=== PATIENT | male | born 1940 | race African-American/Black ===

== ENCOUNTER 2021-03-08 18:57 | Emergency (ER) | payer OTHER, MEDICAID ==
[2021-03-08 19:00] VITALS: BP_SYST 120
--- NOTE | 2021-03-08 19:06 | NUR ---
PT RETURNED FROM CT SCAN VIA [facility] BY RADIOLOGY STAFF.
--- NOTE | 2021-03-08 19:20 | NUR ---
Aisha's blood sugar is 101
[2021-03-08] MEDS: NALOXONE HCL 2 MG/2 ML SYR IVP ONE (19:54)
[2021-03-08 19:59] LABS: BASOPHILS % (AUTO) 0.6 % (0.0-2.0); EOSINOPHILS # (AUTO) 0.3 K/uL (0.0-0.4); EOSINOPHILS % (AUTO) 4.1 % (0.0-4.0); HEMATOCRIT 30.1 % (36-54); HEMOGLOBIN 9.4 g/dL (14.0-18.0); LYMPHOCYTES % (AUTO) 13.3 % (20.5-51.5); MEAN CORPUSCULAR HEMOGLOBIN 24 pg (27-31); MEAN CORPUSCULAR HGB CONC 31 % (32-36); MEAN CORPUSCULAR VOLUME 77 fL (79.0-98.0); MONOCYTES # (AUTO) 0.9 K/uL (0.0-1.0); MONOCYTES % (AUTO) 11.7 % (1.7-9.3); NEUTROPHILS # (AUTO) 5.3 K/uL (1.8-7.7); NEUTROPHILS % (AUTO) 70.3 % (40.0-70.0); PLATELET COUNT (AUTO) 316 K/uL (130-430); RED BLOOD CELL COUNT(AUTO) 3.94 MIL/uL (4.2-6.2); RED CELL DISTRIBUTION WIDTH 16.6 % (9.0-15.0); WHITE BLOOD COUNT (AUTO) 7.6 K/uL (4.8-10.8)
--- NOTE | 2021-03-08 20:00 | NUR ---
TeleMed tom performed assessment on patient via televideo
[2021-03-08 20:15] LABS: ANION GAP 9 (5-15); CALCIUM 10.4 mg/dL (8.4-11.0); CHLORIDE 100 mmol/L (98-107); GLUCOSE 106 mg/dL (70-99); POTASSIUM 3.8 mmol/L (3.5-5.1); SODIUM SERUM 139 mmol/L (136-145); UREA NITROGEN, BLOOD 31 mg/dL (8-21)
[2021-03-08 20:16] LABS: PROTHROMBIN TIME 10.5 SECS (9.5-12.5)
[2021-03-08 20:18] LABS: CREATININE 10.72 mg/dL (0.55-1.30)
[2021-03-08 20:32] LABS: TOTAL BILIRUBIN 0.2 mg/dL (0.0-1.0)
[2021-03-08 20:33] LABS: ALANINE AMINOTRANSFERASE 19 U/L (12-78); ALBUMIN 2.8 g/dL (3.4-4.8); ASPARTATE AMINOTRANSFERASE 21 U/L (10-37)
[2021-03-08] MEDS ORDERED: IOHEXOL 350 mgI/mL, 150 ML INFUS..BTL IV ONE (21:08)
--- NOTE | 2021-03-08 21:40 | NUR ---
patient went to do a CVA CT of head and neck.
[2021-03-08] MEDS ORDERED: ONDANSETRON HCL 4 MG/2 ML VIAL ONE (21:41)
--- NOTE | 2021-03-08 21:45 | NUR ---
Report given to Chel in [facility].
--- NOTE | 2021-03-08 21:50 | NUR ---
AMS arrived to transfer patient. Report given to Aleah.
--- NOTE | 2021-03-08 22:02 | NUR ---
Patient to be transferred to [place]. Is being transferred due to higher level of care. Receiving facility has accepting physician and available space. ER physician has signed transfer form. Patient or responsible libertarian has agreed to transfer and signed form. Patient belongings inventoried and will be sent with patient. Copy of nursing notes, lab reports, EKG, Physicians Orders and X-rays to be sent with patient. Report called to [facility] at receiving facility. Receiving physician is Dr. Elizabeth. [facility] ambulance service has been called for transfer,
--- NOTE | 2021-03-08 22:04 | NUR ---
AMS received 2/3 discs because of delay of care. Will fax over
[2021-03-08] MEDS: ASPIRIN 325 MG TABLET PO ONE (22:08)
[2021-03-08] MEDS: CLOPIDOGREL BISULFATE 75 MG TABLET PO ONE (22:08)
[2021-03-08 22:20] VITALS: BP_SYST 120
== END 2021-03-08 22:20 | disposition short-term general hospital (02) ==
LOC: SED 18:57
DX: I63.9 Cerebral infarction, unspecified (principal); G81.94 Hemiplegia, unspecified affecting left nondominant side; R41.82 Altered mental status, unspecified; D53.9 Nutritional anemia, unspecified; I11.0 Hypertensive heart disease with heart failure; I50.9 Heart failure, unspecified; E11.9 Type 2 diabetes mellitus without complications
CPT/HCPCS: 36415; 70450; 70496; 70498; 71045; 76376; 80053; 82962; 84484; 85025; 85610; 85730; 86886; 86900; 86901; 93005; 96374; 99291; J2310; J2405; Q9967

== ENCOUNTER 2022-07-21 22:27 | Inpatient (IN) | payer OTHER, MEDICAID ==
[~2022-07-21] VITALS: Ht 175.3 cm; Wt 98.9 kg
[2022-07-21 22:41] VITALS: BP_SYST 156
[2022-07-21] MEDS ORDERED: NS 1000 ML IV.SOLN IV ONE (22:45)
[2022-07-21] MEDS ORDERED: cefTRIAXone 1 GM IVPB PREMIX 50 ML IV ONE (22:45)
[2022-07-21 23:31] LABS: HEMATOCRIT 29.1 % (36-54); HEMOGLOBIN 9.1 g/dL (14.0-18.0); MEAN CORPUSCULAR HEMOGLOBIN 24 pg (27-31); MEAN CORPUSCULAR HGB CONC 31 % (32-36); MEAN CORPUSCULAR VOLUME 76 fL (79.0-98.0); PLATELET COUNT (AUTO) 100 K/uL (130-430); RED BLOOD CELL COUNT(AUTO) 3.84 MIL/uL (4.2-6.2); RED CELL DISTRIBUTION WIDTH 16.9 % (9.0-15.0); WHITE BLOOD COUNT (AUTO) 17.9 K/uL (4.8-10.8)
[2022-07-21 23:45] LABS: BAND % (MANUAL) 16 % (0-6); BASOPHILS % (MANUAL) 0 % (0-2); EOSINOPHILS % (MANUAL) 0 % (0-7); LYMPHOCYTES % (MANUAL) 3 % (20-46); MONOCYTES % (MANUAL) 6 % (0-11)
[2022-07-21 23:48] LABS: ANION GAP 7 (5-15); CALCIUM 9.4 mg/dL (8.4-11.0); CHLORIDE 102 mmol/L (98-107); CREATININE 4.99 mg/dL (0.55-1.30); GLUCOSE 103 mg/dL (70-99); UREA NITROGEN, BLOOD 21 mg/dL (8-21)
[2022-07-21 23:55] LABS: ALANINE AMINOTRANSFERASE 26 U/L (12-78); ALBUMIN 2.1 g/dL (3.4-4.8); ASPARTATE AMINOTRANSFERASE 43 U/L (10-37); TOTAL BILIRUBIN 0.3 mg/dL (0.0-1.0)
[2022-07-22] VITALS (11 sets, daily range): BP systolic 82–157
[2022-07-22] MEDS ORDERED: IPRATROPIUM/ALBUTEROL SULFATE 3 ML AMPUL.NEB (DUONEB) ONE (02:33)
[2022-07-22] MEDS ORDERED: CARV25TA55 PO (03:15)
[2022-07-22] MEDS ORDERED: AMLO5TAB4 PO (03:15)
[2022-07-22] MEDS ORDERED: IPRA3AMP9 INH (03:15)
[2022-07-22] MEDS ORDERED: NEU300 PO (03:15)
[2022-07-22] MEDS ORDERED: DARB60VI INJ ×2 (03:15)
[2022-07-22] MEDS ORDERED: REN800 PO (03:15)
[2022-07-22] MEDS ORDERED: SSNOVOLOG SUBCUT (03:15)
[2022-07-22] MEDS ORDERED: ASA81 PO (03:15)
[2022-07-22] MEDS ORDERED: FAMO20TA8 PO (03:15)
[2022-07-22] MEDS ORDERED: PIPERACILLIN/TAZOBACTAM 2.25 GM VIAL IV ONE (03:56)
[2022-07-22] MEDS ORDERED: PIPERACILLIN/TAZOBACTAM 2.25 GM in NS 50 ML IV SCH (06:00)
[2022-07-22] MEDS: IPRATROPIUM/ALBUTEROL SULFATE 3 ML AMPUL.NEB (DUONEB) INH SCH ×4 (07:10→19:50)
[2022-07-22] MEDS ORDERED: SEVELAMER HCL Non-Formulary 800 MG TABLET PO SCH (09:30)
[2022-07-22] MEDS ORDERED: DARBEPOETIN ALFA IN POLYSORBAT 60 MCG INJ SCH (09:30)
[2022-07-22] MEDS ORDERED: IPRATROPIUM/ALBUTEROL SULFATE 3 ML AMPUL.NEB (DUONEB) INH PRN (09:30)
[2022-07-22] MEDS ORDERED: INSULIN REGULAR, HUMAN 100 UNITS/ML, 3 ML VIAL (humuLIN R) SUBCUT PRN (09:45)
[2022-07-22] MEDS ORDERED: DEXTROSE 50% JECT 50 ML DISP.SYRIN IVP PRN (09:45)
[2022-07-22] MEDS ORDERED: CARVEDILOL 25 MG TABLET (COREG) PO ONE (10:15)
[2022-07-22] MEDS ORDERED: ASPIRIN 81 MG TAB.CHEW PO ONE (10:15)
[2022-07-22] MEDS ORDERED: FAMOTIDINE 20 MG TABLET PO ONE (10:30)
[2022-07-22] MEDS ORDERED: amLODIPine BESYLATE 5 MG TABLET PO ONE (10:30)
[2022-07-22] MEDS ORDERED: GABAPENTIN 300 MG CAPSULE PO ONE (10:30)
[2022-07-22] MEDS: ACETAMINOPHEN 325 MG TABLET PO PRN (11:36)
[2022-07-22] MEDS: SEVELAMER CARBONATE 800 MG TABLET PO SCH ×2 (11:55→17:45)
[2022-07-22] MEDS: AZITHROMYCIN 500 MG in NS 250 ML IV SCH (12:44)
[2022-07-22] MEDS: PIPERACILLIN/TAZOBACTAM 2.25 GM in NS 50 ML IV SCH ×3 (15:00→23:59)
[2022-07-22 15:01] LABS: HEMATOCRIT 23.8 % (36-54); HEMOGLOBIN 7.5 g/dL (14.0-18.0); MEAN CORPUSCULAR HEMOGLOBIN 24 pg (27-31); MEAN CORPUSCULAR HGB CONC 31 % (32-36); MEAN CORPUSCULAR VOLUME 76 fL (79.0-98.0); PLATELET COUNT (AUTO) 88 K/uL (130-430); RED BLOOD CELL COUNT(AUTO) 3.12 MIL/uL (4.2-6.2); RED CELL DISTRIBUTION WIDTH 17.1 % (9.0-15.0); WHITE BLOOD COUNT (AUTO) 24.1 K/uL (4.8-10.8)
[2022-07-22 15:22] LABS: ALANINE AMINOTRANSFERASE 15 U/L (12-78); ALBUMIN 1.8 g/dL (3.4-4.8); ANION GAP 7 (5-15); ASPARTATE AMINOTRANSFERASE 27 U/L (10-37); CALCIUM 9.1 mg/dL (8.4-11.0); CHLORIDE 102 mmol/L (98-107); CREATININE 6.21 mg/dL (0.55-1.30); GLUCOSE 90 mg/dL (70-99); TOTAL BILIRUBIN 0.3 mg/dL (0.0-1.0); UREA NITROGEN, BLOOD 30 mg/dL (8-21)
[2022-07-22 15:31] LABS: BAND % (MANUAL) 25 % (0-6); BASOPHILS % (MANUAL) 0 % (0-2); EOSINOPHILS % (MANUAL) 0 % (0-7); LYMPHOCYTES % (MANUAL) 2 % (20-46); METAMYELOCYTES % 2 % (0-0); MONOCYTES % (MANUAL) 4 % (0-11)
[2022-07-22 16:18] LABS: INR 1.2 (0.80-1.20); PROTHROMBIN TIME 12.3 SECS (9.5-12.5)
[2022-07-22] MEDS ORDERED: NOREPINEPHRINE BITARTRATE 4 MG in NS 246 ML IV PRN (18:00)
[2022-07-22] MEDS ORDERED: METHYLPREDNISOLONE SOD SUCC 40 MG/ML VIAL IVP ONE (18:30)
[2022-07-22] MEDS ORDERED: ALBUMIN HUMAN 25% 100 ML IV ONE (18:30)
[2022-07-22] MEDS ORDERED: SODIUM POLYSTYRENE SULFONATE 15 GM/60 ML UDBTL PO ONE (20:00)
[2022-07-22] MEDS ORDERED: VANCOMYCIN HCL 1,000 MG in NS 250 ML IV ONE (21:00)
[2022-07-22] MEDS ORDERED: CARVEDILOL 25 MG TABLET (COREG) PO SCH (21:00)
[2022-07-22] MEDS: GABAPENTIN 300 MG CAPSULE PO SCH (21:06)
[2022-07-22] MEDS: METHYLPREDNISOLONE SOD SUCC 40 MG/ML VIAL IVP SCH (21:06)
[2022-07-22] MEDS ORDERED: METHYLPREDNISOLONE SOD SUCC 40 MG/ML VIAL IVP SCH (22:00)
[2022-07-23] VITALS (23 sets, daily range): BP systolic 104–139
[2022-07-23 05:27] LABS: EOSINOPHILS % (AUTO) 0.1 % (0.0-4.0); HEMOGLOBIN 7.4 g/dL (14.0-18.0); LYMPHOCYTES # (AUTO) 0.5 K/uL (1.0-5.5); LYMPHOCYTES % (AUTO) 2.7 % (20.5-51.5); MEAN CORPUSCULAR HEMOGLOBIN 23 pg (27-31); MEAN CORPUSCULAR HGB CONC 31 % (32-36); MEAN CORPUSCULAR VOLUME 76 fL (79.0-98.0); MONOCYTES # (AUTO) 0.2 K/uL (0.0-1.0); MONOCYTES % (AUTO) 1.4 % (1.7-9.3); NEUTROPHILS # (AUTO) 17.3 K/uL (1.8-7.7); NEUTROPHILS % (AUTO) 95.8 % (40.0-70.0); PLATELET COUNT (AUTO) 93 K/uL (130-430); RED BLOOD CELL COUNT(AUTO) 3.14 MIL/uL (4.2-6.2); RED CELL DISTRIBUTION WIDTH 16.9 % (9.0-15.0)
[2022-07-23 05:55] LABS: ALANINE AMINOTRANSFERASE 16 U/L (12-78); ALBUMIN 2.1 g/dL (3.4-4.8); ANION GAP 9 (5-15); ASPARTATE AMINOTRANSFERASE 25 U/L (10-37); CALCIUM 9.2 mg/dL (8.4-11.0); CHLORIDE 102 mmol/L (98-107); CREATININE 6.86 mg/dL (0.55-1.30); GLUCOSE 102 mg/dL (70-99); PHOSPHORUS 5.8 mg/dL (2.7-4.5); TOTAL BILIRUBIN 0.4 mg/dL (0.0-1.0); UREA NITROGEN, BLOOD 39 mg/dL (8-21); VANCOMYCIN,RANDOM 18.8 ug/mL
[2022-07-23 05:56] LABS: TOTAL IRON BIND. CAPACITY 206 ug/dL (250-450)
[2022-07-23] MEDS: METHYLPREDNISOLONE SOD SUCC 40 MG/ML VIAL IVP SCH ×2 (06:36→17:59)
[2022-07-23] MEDS: PIPERACILLIN/TAZOBACTAM 2.25 GM in NS 50 ML IV SCH ×4 (06:36→23:38)
[2022-07-23] MEDS: IPRATROPIUM/ALBUTEROL SULFATE 3 ML AMPUL.NEB (DUONEB) INH SCH ×4 (07:44→19:38)
[2022-07-23] MEDS ORDERED: amLODIPine BESYLATE 5 MG TABLET PO SCH (09:00)
[2022-07-23] MEDS: CARVEDILOL 6.25 MG TABLET (COREG) PO SCH ×2 (09:00→21:00)
[2022-07-23] MEDS: SEVELAMER CARBONATE 800 MG TABLET PO SCH ×3 (10:11→17:57)
[2022-07-23] MEDS: FAMOTIDINE 20 MG TABLET PO SCH (10:11)
[2022-07-23] MEDS: NEPHROVITE, (FOLIC ACID/VITAMIN B COMP W-C 1 TAB) PO SCH (10:11)
[2022-07-23] MEDS: ASPIRIN 81 MG TAB.CHEW PO SCH (10:11)
[2022-07-23] MEDS: GABAPENTIN 300 MG CAPSULE PO SCH ×2 (10:11→21:26)
[2022-07-23] MEDS: AZITHROMYCIN 500 MG in NS 250 ML IV SCH (10:11)
[2022-07-23] MEDS ORDERED: VANCOMYCIN HCL 500 MG in NS 100 ML IV ONE (18:00)
[2022-07-24] VITALS (21 sets, daily range): BP systolic 101–133
[2022-07-24 05:09] LABS: BASOPHILS % (AUTO) 0.1 % (0.0-2.0); HEMATOCRIT 30.9 % (36-54); HEMOGLOBIN 9.8 g/dL (14.0-18.0); LYMPHOCYTES # (AUTO) 0.6 K/uL (1.0-5.5); LYMPHOCYTES % (AUTO) 3.8 % (20.5-51.5); MEAN CORPUSCULAR HEMOGLOBIN 25 pg (27-31); MEAN CORPUSCULAR HGB CONC 32 % (32-36); MEAN CORPUSCULAR VOLUME 79 fL (79.0-98.0); MONOCYTES # (AUTO) 0.8 K/uL (0.0-1.0); NEUTROPHILS # (AUTO) 13.9 K/uL (1.8-7.7); NEUTROPHILS % (AUTO) 91.1 % (40.0-70.0); PLATELET COUNT (AUTO) 99 K/uL (130-430); RED BLOOD CELL COUNT(AUTO) 3.94 MIL/uL (4.2-6.2); RED CELL DISTRIBUTION WIDTH 17.8 % (9.0-15.0); WHITE BLOOD COUNT (AUTO) 15.3 K/uL (4.8-10.8)
[2022-07-24 05:25] LABS: ANION GAP 7 (5-15); CALCIUM 8.9 mg/dL (8.4-11.0); CHLORIDE 98 mmol/L (98-107); CREATININE 4.64 mg/dL (0.55-1.30); GLUCOSE 122 mg/dL (70-99); UREA NITROGEN, BLOOD 36 mg/dL (8-21); VANCOMYCIN,RANDOM 20.2 ug/mL
[2022-07-24] MEDS: METHYLPREDNISOLONE SOD SUCC 40 MG/ML VIAL IVP SCH ×2 (06:01→18:34)
[2022-07-24] MEDS: PIPERACILLIN/TAZOBACTAM 2.25 GM in NS 50 ML IV SCH ×3 (06:01→18:34)
[2022-07-24] MEDS: IPRATROPIUM/ALBUTEROL SULFATE 3 ML AMPUL.NEB (DUONEB) INH SCH ×4 (07:00→19:30)
[2022-07-24] MEDS: AZITHROMYCIN 500 MG in NS 250 ML IV SCH (10:42)
[2022-07-24] MEDS: GABAPENTIN 300 MG CAPSULE PO SCH ×2 (10:46→20:53)
[2022-07-24] MEDS: ASPIRIN 81 MG TAB.CHEW PO SCH (10:47)
[2022-07-24] MEDS: SEVELAMER CARBONATE 800 MG TABLET PO SCH ×3 (10:47→18:33)
[2022-07-24] MEDS: NEPHROVITE, (FOLIC ACID/VITAMIN B COMP W-C 1 TAB) PO SCH (10:47)
[2022-07-24] MEDS: FAMOTIDINE 20 MG TABLET PO SCH (10:47)
[2022-07-24] MEDS ORDERED: MEGESTROL ACETATE 400 MG/10 ML UDC PO ONE (12:15)
[2022-07-24] MEDS: MIRTAZAPINE 15 MG TABLET PO SCH (18:34)
[2022-07-25] VITALS: BP_SYST 117
[2022-07-25] MEDS: PIPERACILLIN/TAZOBACTAM 2.25 GM in NS 50 ML IV SCH ×4 (00:03→18:09)
[2022-07-25] MEDS: METHYLPREDNISOLONE SOD SUCC 40 MG/ML VIAL IVP SCH ×2 (05:26→17:39)
[2022-07-25 07:29] LABS: BASOPHILS % (AUTO) 0.1 % (0.0-2.0); EOSINOPHILS % (AUTO) 0.1 % (0.0-4.0); HEMATOCRIT 30.1 % (36-54); HEMOGLOBIN 9.6 g/dL (14.0-18.0); LYMPHOCYTES # (AUTO) 0.8 K/uL (1.0-5.5); LYMPHOCYTES % (AUTO) 6.3 % (20.5-51.5); MEAN CORPUSCULAR HEMOGLOBIN 25 pg (27-31); MEAN CORPUSCULAR HGB CONC 32 % (32-36); MEAN CORPUSCULAR VOLUME 79 fL (79.0-98.0); MONOCYTES # (AUTO) 0.9 K/uL (0.0-1.0); MONOCYTES % (AUTO) 6.7 % (1.7-9.3); NEUTROPHILS # (AUTO) 11.7 K/uL (1.8-7.7); NEUTROPHILS % (AUTO) 86.8 % (40.0-70.0); PLATELET COUNT (AUTO) 105 K/uL (130-430); RED BLOOD CELL COUNT(AUTO) 3.82 MIL/uL (4.2-6.2); WHITE BLOOD COUNT (AUTO) 13.5 K/uL (4.8-10.8)
[2022-07-25 07:32] LABS: ANION GAP 13 (5-15); CALCIUM 8.5 mg/dL (8.4-11.0); CHLORIDE 98 mmol/L (98-107); GLUCOSE 134 mg/dL (70-99); UREA NITROGEN, BLOOD 66 mg/dL (8-21)
[2022-07-25] MEDS: IPRATROPIUM/ALBUTEROL SULFATE 3 ML AMPUL.NEB (DUONEB) INH SCH ×4 (07:41→20:02)
[2022-07-25 07:57] LABS: ALANINE AMINOTRANSFERASE 34 U/L (12-78); ALBUMIN 1.9 g/dL (3.4-4.8); ASPARTATE AMINOTRANSFERASE 32 U/L (10-37); TOTAL BILIRUBIN 0.4 mg/dL (0.0-1.0); VANCOMYCIN,RANDOM 17.9 ug/mL
[2022-07-25] MEDS ORDERED: ATROPINE SULFATE 1 MG/10 ML SYRINGE IVP ONE ×2 (08:00→08:30)
[2022-07-25] MEDS: THEOPHYLLINE ANHYDROUS 200 MG CAP.ER.24H PO SCH ×2 (08:14→20:35)
[2022-07-25] MEDS: FAMOTIDINE 20 MG TABLET PO SCH (08:19)
[2022-07-25] MEDS: SEVELAMER CARBONATE 800 MG TABLET PO SCH ×3 (08:19→17:36)
[2022-07-25] MEDS: ASPIRIN 81 MG TAB.CHEW PO SCH (08:19)
[2022-07-25] MEDS: NEPHROVITE, (FOLIC ACID/VITAMIN B COMP W-C 1 TAB) PO SCH (08:19)
[2022-07-25 08:20] VITALS: BP_SYST 133
[2022-07-25] MEDS: MEGESTROL ACETATE 400 MG/10 ML UDC PO SCH (08:20)
[2022-07-25 08:54] VITALS: BP_SYST 117
[2022-07-25 12:00] VITALS: BP_SYST 120
[2022-07-25 16:03] VITALS: BP_SYST 113
[2022-07-25] MEDS: AZITHROMYCIN 500 MG in NS 250 ML IV SCH (16:19)
[2022-07-25] MEDS: MIRTAZAPINE 15 MG TABLET PO SCH (17:36)
[2022-07-25 20:00] VITALS: BP_SYST 142
[2022-07-25] MEDS ORDERED: ACETAMINOPHEN 325 MG TABLET PO PRN (20:45)
[2022-07-26] VITALS: BP_SYST 118
[2022-07-26] MEDS: PIPERACILLIN/TAZOBACTAM 2.25 GM in NS 50 ML IV SCH ×2 (00:37→05:24)
[2022-07-26] MEDS: METHYLPREDNISOLONE SOD SUCC 40 MG/ML VIAL IVP SCH ×2 (05:24→17:45)
[2022-07-26 06:09] LABS: BASOPHILS % (AUTO) 0.1 % (0.0-2.0); HEMOGLOBIN 9.8 g/dL (14.0-18.0); LYMPHOCYTES # (AUTO) 0.8 K/uL (1.0-5.5); MEAN CORPUSCULAR HEMOGLOBIN 25 pg (27-31); MEAN CORPUSCULAR HGB CONC 32 % (32-36); MEAN CORPUSCULAR VOLUME 79 fL (79.0-98.0); MONOCYTES # (AUTO) 0.9 K/uL (0.0-1.0); MONOCYTES % (AUTO) 6.9 % (1.7-9.3); NEUTROPHILS # (AUTO) 11.5 K/uL (1.8-7.7); PLATELET COUNT (AUTO) 106 K/uL (130-430); RED BLOOD CELL COUNT(AUTO) 3.95 MIL/uL (4.2-6.2); RED CELL DISTRIBUTION WIDTH 18.2 % (9.0-15.0); WHITE BLOOD COUNT (AUTO) 13.2 K/uL (4.8-10.8)
[2022-07-26] MEDS: IPRATROPIUM/ALBUTEROL SULFATE 3 ML AMPUL.NEB (DUONEB) INH SCH ×4 (07:06→20:13)
[2022-07-26 07:45] LABS: ALANINE AMINOTRANSFERASE 67 U/L (12-78); ALBUMIN 1.9 g/dL (3.4-4.8); ANION GAP 17 (5-15); ASPARTATE AMINOTRANSFERASE 52 U/L (10-37); CALCIUM 8.5 mg/dL (8.4-11.0); CHLORIDE 99 mmol/L (98-107); CREATININE 7.42 mg/dL (0.55-1.30); GLUCOSE 141 mg/dL (70-99); TOTAL BILIRUBIN 0.3 mg/dL (0.0-1.0); UREA NITROGEN, BLOOD 96 mg/dL (8-21); VANCOMYCIN,RANDOM 16.6 ug/mL
[2022-07-26] MEDS: SEVELAMER CARBONATE 800 MG TABLET PO SCH ×3 (08:00→17:46)
[2022-07-26] MEDS: MEGESTROL ACETATE 400 MG/10 ML UDC PO SCH (09:00)
[2022-07-26 11:19] VITALS: BP_SYST 155
[2022-07-26] MEDS: ASPIRIN 81 MG TAB.CHEW PO SCH (13:18)
[2022-07-26] MEDS: FAMOTIDINE 20 MG TABLET PO SCH (13:19)
[2022-07-26] MEDS: NEPHROVITE, (FOLIC ACID/VITAMIN B COMP W-C 1 TAB) PO SCH (13:20)
[2022-07-26] MEDS: THEOPHYLLINE ANHYDROUS 200 MG CAP.ER.24H PO SCH ×3 (13:21→22:02)
[2022-07-26] MEDS: ACETAMINOPHEN 325 MG TABLET PO PRN (16:04)
[2022-07-26] MEDS ORDERED: EPOETIN ALFA-EPBX 3,000 UNITS/ML VIAL SUBCUT SCH (17:00)
[2022-07-26 17:15] VITALS: BP_SYST 150
[2022-07-26] MEDS: MIRTAZAPINE 15 MG TABLET PO SCH (17:45)
[2022-07-26 18:58] VITALS: BP_SYST 139
[2022-07-26 20:00] VITALS: BP_SYST 145
[2022-07-27 01:00] VITALS: BP_SYST 149
[2022-07-27] MEDS: METHYLPREDNISOLONE SOD SUCC 40 MG/ML VIAL IVP SCH (06:39)
[2022-07-27] MEDS: IPRATROPIUM/ALBUTEROL SULFATE 3 ML AMPUL.NEB (DUONEB) INH SCH (07:00)
[2022-07-27 07:44] VITALS: BP_SYST 151
[2022-07-27] MEDS: NEPHROVITE, (FOLIC ACID/VITAMIN B COMP W-C 1 TAB) PO SCH (08:14)
[2022-07-27] MEDS: THEOPHYLLINE ANHYDROUS 200 MG CAP.ER.24H PO SCH (08:14)
[2022-07-27] MEDS: ASPIRIN 81 MG TAB.CHEW PO SCH (08:14)
[2022-07-27] MEDS: FAMOTIDINE 20 MG TABLET PO SCH (08:14)
[2022-07-27] MEDS: SEVELAMER CARBONATE 800 MG TABLET PO SCH (08:15)
[2022-07-27] MEDS: MEGESTROL ACETATE 400 MG/10 ML UDC PO SCH ×2 (08:15→08:21)
== END 2022-07-27 11:30 | DRG 871 ==
LOC: SED 22:27 → STU 07-22 01:54 → SIC 07-22 15:20 → STU 07-24 19:23
PROVIDERS: ADMIT Internal Medicine; ATTEND Internal Medicine
PROC: 30233N1 Transfusion of Nonautologous Red Blood Cells into Peripheral Vein, Percutaneous Approach (ICD-10-PCS; principal; 2022-07-23)
PROC: 5A1D70Z Performance of Urinary Filtration, Intermittent, Less than 6 Hours Per Day (ICD-10-PCS; 2022-07-23)
PROC: 5A1D70Z Performance of Urinary Filtration, Intermittent, Less than 6 Hours Per Day (ICD-10-PCS; 2022-07-24)
PROC: 5A1D70Z Performance of Urinary Filtration, Intermittent, Less than 6 Hours Per Day (ICD-10-PCS; 2022-07-26)
DX: A41.02 Sepsis due to Methicillin resistant Staphylococcus aureus (principal); E43 Unspecified severe protein-calorie malnutrition; G93.41 Metabolic encephalopathy; J18.9 Pneumonia, unspecified organism; N18.6 End stage renal disease; J96.00 Acute respiratory failure, unspecified whether with hypoxia or hypercapnia; R57.1 Hypovolemic shock; I69.354 Hemiplegia and hemiparesis following cerebral infarction affecting left non-dominant side; I12.0 Hypertensive chronic kidney disease with stage 5 chronic kidney disease or end stage renal disease; F03.90 Unspecified dementia, unspecified severity, without behavioral disturbance, psychotic disturbance, mood disturbance, and anxiety; I25.10 Atherosclerotic heart disease of native coronary artery without angina pectoris; D63.1 Anemia in chronic kidney disease; J84.10 Pulmonary fibrosis, unspecified; I44.1 Atrioventricular block, second degree; E11.42 Type 2 diabetes mellitus with diabetic polyneuropathy; J43.9 Emphysema, unspecified; Z20.822 Contact with and (suspected) exposure to COVID-19; E11.22 Type 2 diabetes mellitus with diabetic chronic kidney disease; Z79.82 Long term (current) use of aspirin; Z79.4 Long term (current) use of insulin; Z79.899 Other long term (current) drug therapy; Z74.01 Bed confinement status; Z99.3 Dependence on wheelchair; Z99.2 Dependence on renal dialysis; Z95.5 Presence of coronary angioplasty implant and graft; Z68.32 Body mass index [BMI] 32.0-32.9, adult
CPT/HCPCS: 36415; 36600; 70450-TC; 71045; 71250-TC; 76376; 80048; 80053; 80202; 82140; 82607; 82803-TC; 82962; 83540; 83550; 83605; 83880; 84100; 84484; 85007; 85025; 85027; 85610-TC; 85651-TC; 85730-TC; 86886; 86900; 86901; 86920; 87040; 87081; 87186-TC; 90935; 90937; 93005; 93306; 94640; 94760; 96361; 96365; 99285; G0378; J0456; J0461; J0696; J1030; J1815; J2543; J3370; J7050; P9021; Q5106

== ENCOUNTER 2022-07-30 23:17 | Inpatient (IN) | payer OTHER, MEDICAID ==
[~2022-07-30] VITALS: Ht 175.3 cm; Wt 73.0 kg
[~2022-07-30 23:17] MED LIST: AMLO5TAB4 PO; ASA81 PO; CARV25TA55 PO; DARB60VI INJ; FAMO20TA8 PO; IPRA3AMP9 INH; NEU300 PO; REN800 PO; SSNOVOLOG SUBCUT
[2022-07-30 23:22] VITALS: BP_SYST 124
[2022-07-31] VITALS (12 sets, daily range): BP systolic 96–148
[2022-07-31] MEDS ORDERED: CEFEPIME 2 GM in D5W 100 ML IV ONE (00:15)
[2022-07-31] MEDS ORDERED: ACETAMINOPHEN 325 MG TABLET PO ONE (00:15)
[2022-07-31] MEDS ORDERED: VANCOMYCIN HCL 1,000 MG in NS 250 ML IV ONE (00:15)
[2022-07-31] MEDS ORDERED: MOM PO (00:41)
[2022-07-31] MEDS ORDERED: ACET-73 PO (00:41)
[2022-07-31] MEDS ORDERED: DOCU-144 PO (00:41)
[2022-07-31] MEDS ORDERED: SENN8.6T19 PO (00:41)
[2022-07-31] MEDS ORDERED: BISA10SU61 RC (00:41)
[2022-07-31 00:51] LABS: BASOPHILS % (AUTO) 0.2 % (0.0-2.0); EOSINOPHILS # (AUTO) 0.3 K/uL (0.0-0.4); EOSINOPHILS % (AUTO) 2.5 % (0.0-4.0); HEMATOCRIT 28.3 % (36-54); HEMOGLOBIN 9.1 g/dL (14.0-18.0); LYMPHOCYTES # (AUTO) 0.8 K/uL (1.0-5.5); LYMPHOCYTES % (AUTO) 6.4 % (20.5-51.5); MEAN CORPUSCULAR HEMOGLOBIN 25 pg (27-31); MEAN CORPUSCULAR HGB CONC 32 % (32-36); MEAN CORPUSCULAR VOLUME 77 fL (79.0-98.0); MONOCYTES # (AUTO) 1.5 K/uL (0.0-1.0); MONOCYTES % (AUTO) 12.2 % (1.7-9.3); NEUTROPHILS # (AUTO) 9.6 K/uL (1.8-7.7); NEUTROPHILS % (AUTO) 78.7 % (40.0-70.0); PLATELET COUNT (AUTO) 185 K/uL (130-430); RED BLOOD CELL COUNT(AUTO) 3.66 MIL/uL (4.2-6.2); RED CELL DISTRIBUTION WIDTH 19.7 % (9.0-15.0); WHITE BLOOD COUNT (AUTO) 12.2 K/uL (4.8-10.8)
[2022-07-31] MEDS ORDERED: VANCOMYCIN HCL 1000 MG/VIAL IV ONE (01:01)
[2022-07-31 01:06] LABS: ANION GAP 8 (5-15); CHLORIDE 100 mmol/L (98-107); CREATININE 4.94 mg/dL (0.55-1.30); GLUCOSE 112 mg/dL (70-99); UREA NITROGEN, BLOOD 46 mg/dL (8-21)
[2022-07-31 01:25] LABS: ALANINE AMINOTRANSFERASE 42 U/L (12-78); ALBUMIN 1.8 g/dL (3.4-4.8); ASPARTATE AMINOTRANSFERASE 24 U/L (10-37); TOTAL BILIRUBIN 0.4 mg/dL (0.0-1.0)
[2022-07-31] MEDS ORDERED: CEFEPIME 1 GM/VIAL (MAXIPIME) ONE (01:36)
[2022-07-31] MEDS ORDERED: IPRATROPIUM/ALBUTEROL SULFATE 3 ML AMPUL.NEB (DUONEB) INH ONE (02:30)
[2022-07-31] MEDS ORDERED: ALBUTEROL SULFATE 0.083% 2.5 MG/3 ML VIAL.NEB INH ONE (02:30)
[2022-07-31] MEDS ORDERED: IPRATROPIUM/ALBUTEROL SULFATE 3 ML AMPUL.NEB (DUONEB) INH SCH (06:00)
[2022-07-31] MEDS ORDERED: INSULIN REGULAR, HUMAN 100 UNITS/ML, 3 ML VIAL (humuLIN R) SUBCUT PRN (06:15)
[2022-07-31] MEDS ORDERED: PIPERACILLIN/TAZO 2.25G/DEX-IS 50 ML IV ONE ×2 (07:00→08:00)
[2022-07-31] MEDS: IPRATROPIUM/ALBUTEROL SULFATE 3 ML AMPUL.NEB (DUONEB) INH SCH ×5 (07:19→22:15)
[2022-07-31] MEDS ORDERED: amLODIPine BESYLATE 5 MG TABLET PO SCH (09:00)
[2022-07-31] MEDS: BISACODYL 10 MG/SUPPOSITORY RC SCH ×2 (09:00→21:00)
[2022-07-31] MEDS: SEVELAMER CARBONATE 800 MG TABLET PO SCH ×3 (09:03→17:42)
[2022-07-31] MEDS: DOCUSATE SODIUM 100 MG CAPSULE PO SCH ×3 (09:04→21:14)
[2022-07-31] MEDS: ASPIRIN 81 MG TAB.CHEW PO SCH (09:04)
[2022-07-31] MEDS: THEOPHYLLINE ANHYDROUS 200 MG CAP.ER.24H PO SCH ×2 (09:05→20:55)
[2022-07-31] MEDS ORDERED: ALBUMIN HUMAN 25% 50 ML IV ONE (13:00)
[2022-07-31] MEDS ORDERED: PIPERACILLIN/TAZO 2.25G/DEX-IS 50 ML IV SCH (14:00)
[2022-08-01] VITALS (13 sets, daily range): BP systolic 92–143
[2022-08-01] MEDS: CEFEPIME 1 GM in D5W 50 ML IV SCH (01:20)
[2022-08-01] MEDS: IPRATROPIUM/ALBUTEROL SULFATE 3 ML AMPUL.NEB (DUONEB) INH SCH ×6 (02:15→23:13)
[2022-08-01 06:23] LABS: BASOPHILS % (AUTO) 0.2 % (0.0-2.0); EOSINOPHILS # (AUTO) 0.3 K/uL (0.0-0.4); EOSINOPHILS % (AUTO) 2.8 % (0.0-4.0); HEMATOCRIT 26.7 % (36-54); HEMOGLOBIN 8.7 g/dL (14.0-18.0); LYMPHOCYTES # (AUTO) 1.1 K/uL (1.0-5.5); LYMPHOCYTES % (AUTO) 10.3 % (20.5-51.5); MEAN CORPUSCULAR HEMOGLOBIN 25 pg (27-31); MEAN CORPUSCULAR HGB CONC 33 % (32-36); MEAN CORPUSCULAR VOLUME 77 fL (79.0-98.0); MONOCYTES # (AUTO) 1.4 K/uL (0.0-1.0); MONOCYTES % (AUTO) 12.8 % (1.7-9.3); NEUTROPHILS % (AUTO) 73.9 % (40.0-70.0); PLATELET COUNT (AUTO) 203 K/uL (130-430); RED BLOOD CELL COUNT(AUTO) 3.44 MIL/uL (4.2-6.2); RED CELL DISTRIBUTION WIDTH 19.9 % (9.0-15.0); WHITE BLOOD COUNT (AUTO) 10.8 K/uL (4.8-10.8)
[2022-08-01 06:38] LABS: ALANINE AMINOTRANSFERASE 32 U/L (12-78); ALBUMIN 1.8 g/dL (3.4-4.8); ANION GAP 13 (5-15); ASPARTATE AMINOTRANSFERASE 20 U/L (10-37); CALCIUM 9.4 mg/dL (8.4-11.0); CHLORIDE 99 mmol/L (98-107); CREATININE 6.69 mg/dL (0.55-1.30); GLUCOSE 85 mg/dL (70-99); PHOSPHORUS 6.3 mg/dL (2.7-4.5); TOTAL BILIRUBIN 0.4 mg/dL (0.0-1.0); UREA NITROGEN, BLOOD 71 mg/dL (8-21)
[2022-08-01] MEDS: THEOPHYLLINE ANHYDROUS 200 MG CAP.ER.24H PO SCH ×3 (09:17→21:16)
[2022-08-01] MEDS: SEVELAMER CARBONATE 800 MG TABLET PO SCH ×3 (09:17→17:47)
[2022-08-01] MEDS: ASPIRIN 81 MG TAB.CHEW PO SCH (09:17)
[2022-08-01] MEDS: BISACODYL 10 MG/SUPPOSITORY RC SCH ×2 (09:17→21:24)
[2022-08-01] MEDS: ACETAMINOPHEN 500 MG TABLET PO PRN (10:06)
[2022-08-01] MEDS: DOCUSATE SODIUM 100 MG CAPSULE PO SCH (21:16)
[2022-08-02 00:46] VITALS: BP_SYST 134
[2022-08-02] MEDS: CEFEPIME 1 GM in D5W 50 ML IV SCH (01:22)
[2022-08-02] MEDS: IPRATROPIUM/ALBUTEROL SULFATE 3 ML AMPUL.NEB (DUONEB) INH SCH ×6 (03:05→23:28)
[2022-08-02 07:57] LABS: BASOPHILS % (AUTO) 0.1 % (0.0-2.0); EOSINOPHILS # (AUTO) 0.3 K/uL (0.0-0.4); EOSINOPHILS % (AUTO) 1.8 % (0.0-4.0); HEMATOCRIT 28.2 % (36-54); HEMOGLOBIN 8.9 g/dL (14.0-18.0); LYMPHOCYTES # (AUTO) 0.9 K/uL (1.0-5.5); LYMPHOCYTES % (AUTO) 6.2 % (20.5-51.5); MEAN CORPUSCULAR HEMOGLOBIN 25 pg (27-31); MEAN CORPUSCULAR HGB CONC 32 % (32-36); MEAN CORPUSCULAR VOLUME 78 fL (79.0-98.0); MONOCYTES # (AUTO) 1.9 K/uL (0.0-1.0); MONOCYTES % (AUTO) 12.6 % (1.7-9.3); NEUTROPHILS # (AUTO) 11.9 K/uL (1.8-7.7); NEUTROPHILS % (AUTO) 79.3 % (40.0-70.0); PLATELET COUNT (AUTO) 250 K/uL (130-430); RED BLOOD CELL COUNT(AUTO) 3.63 MIL/uL (4.2-6.2); RED CELL DISTRIBUTION WIDTH 19.8 % (9.0-15.0)
[2022-08-02 08:00] VITALS: BP_SYST 146
[2022-08-02 08:20] LABS: ALANINE AMINOTRANSFERASE 26 U/L (12-78); ALBUMIN 1.6 g/dL (3.4-4.8); ANION GAP 14 (5-15); ASPARTATE AMINOTRANSFERASE 22 U/L (10-37); CALCIUM 9.1 mg/dL (8.4-11.0); CHLORIDE 97 mmol/L (98-107); GLUCOSE 104 mg/dL (70-99); TOTAL BILIRUBIN 0.4 mg/dL (0.0-1.0); UREA NITROGEN, BLOOD 92 mg/dL (8-21); VANCOMYCIN,RANDOM 30.2 ug/mL
[2022-08-02 08:30] LABS: CREATININE 8.17 mg/dL (0.55-1.30)
[2022-08-02] MEDS: BISACODYL 10 MG/SUPPOSITORY RC SCH ×2 (09:00→21:00)
[2022-08-02] MEDS: THEOPHYLLINE ANHYDROUS 200 MG CAP.ER.24H PO SCH (09:00)
[2022-08-02] MEDS: SEVELAMER CARBONATE 800 MG TABLET PO SCH ×3 (10:02→18:00)
[2022-08-02] MEDS: DOCUSATE SODIUM 100 MG CAPSULE PO SCH ×2 (10:02→20:55)
[2022-08-02] MEDS: ASPIRIN 81 MG TAB.CHEW PO SCH (10:02)
[2022-08-02 11:22] VITALS: BP_SYST 126
[2022-08-02] MEDS: MUPIROCIN 2% TOPICAL OINTMENT 22 GM TP SCH ×2 (14:02→20:55)
[2022-08-02] MEDS: THEOPHYLLINE ANHYDROUS 80 MG/15 ML UDC PO SCH ×2 (15:00→21:00)
[2022-08-02 15:46] VITALS: BP_SYST 140
[2022-08-02 20:00] VITALS: BP_SYST 143
[2022-08-03] VITALS (8 sets, daily range): BP systolic 137–158
[2022-08-03] MEDS: CEFEPIME 1 GM in D5W 50 ML IV SCH (00:54)
[2022-08-03] MEDS: IPRATROPIUM/ALBUTEROL SULFATE 3 ML AMPUL.NEB (DUONEB) INH SCH ×6 (03:00→23:15)
[2022-08-03] MEDS: DEXTROSE 50% JECT 50 ML DISP.SYRIN IVP PRN ×2 (06:42→12:08)
[2022-08-03 07:42] LABS: BASOPHILS % (AUTO) 0.3 % (0.0-2.0); EOSINOPHILS # (AUTO) 0.1 K/uL (0.0-0.4); EOSINOPHILS % (AUTO) 1.1 % (0.0-4.0); HEMATOCRIT 27.4 % (36-54); HEMOGLOBIN 8.6 g/dL (14.0-18.0); LYMPHOCYTES # (AUTO) 0.8 K/uL (1.0-5.5); LYMPHOCYTES % (AUTO) 6.8 % (20.5-51.5); MEAN CORPUSCULAR HEMOGLOBIN 25 pg (27-31); MEAN CORPUSCULAR HGB CONC 32 % (32-36); MEAN CORPUSCULAR VOLUME 79 fL (79.0-98.0); MONOCYTES # (AUTO) 1.3 K/uL (0.0-1.0); MONOCYTES % (AUTO) 11.8 % (1.7-9.3); NEUTROPHILS # (AUTO) 8.9 K/uL (1.8-7.7); PLATELET COUNT (AUTO) 254 K/uL (130-430); RED BLOOD CELL COUNT(AUTO) 3.47 MIL/uL (4.2-6.2); RED CELL DISTRIBUTION WIDTH 20.8 % (9.0-15.0); WHITE BLOOD COUNT (AUTO) 11.1 K/uL (4.8-10.8)
[2022-08-03 09:03] LABS: ALANINE AMINOTRANSFERASE 20 U/L (12-78); ALBUMIN 1.6 g/dL (3.4-4.8); ANION GAP 13 (5-15); ASPARTATE AMINOTRANSFERASE 23 U/L (10-37); CALCIUM 9.2 mg/dL (8.4-11.0); CHLORIDE 97 mmol/L (98-107); CREATININE 5.52 mg/dL (0.55-1.30); GLUCOSE 220 mg/dL (70-99); PHOSPHORUS 4.9 mg/dL (2.7-4.5); TOTAL BILIRUBIN 0.4 mg/dL (0.0-1.0); UREA NITROGEN, BLOOD 49 mg/dL (8-21)
[2022-08-03] MEDS ORDERED: MEGESTROL ACETATE 400 MG/10 ML UDC PO ONE (14:15)
[2022-08-03] MEDS ORDERED: D10W 250 ML IV ONE (15:00)
[2022-08-03] MEDS: ACETAMINOPHEN 500 MG TABLET PO PRN (15:34)
[2022-08-03] MEDS: CEFTAROLINE FOSAMIL ACETATE IV SCH (16:51)
[2022-08-03] MEDS: NS IV SCH (16:51)
[2022-08-03] MEDS: DOCUSATE SODIUM 100 MG CAPSULE PO SCH (20:24)
[2022-08-03] MEDS: MIRTAZAPINE 15 MG TABLET PO SCH (20:25)
[2022-08-03] MEDS: MUPIROCIN 2% TOPICAL OINTMENT 22 GM TP SCH (20:39)
[2022-08-03] MEDS: BISACODYL 10 MG/SUPPOSITORY RC SCH (20:39)
[2022-08-04] VITALS (7 sets, daily range): BP systolic 131–172
[2022-08-04] MEDS: IPRATROPIUM/ALBUTEROL SULFATE 3 ML AMPUL.NEB (DUONEB) INH SCH ×6 (03:00→23:28)
[2022-08-04] MEDS: CEFTAROLINE FOSAMIL ACETATE IV SCH ×2 (05:42→17:39)
[2022-08-04] MEDS: NS IV SCH ×2 (05:42→17:39)
[2022-08-04] MEDS: DEXTROSE 50% JECT 50 ML DISP.SYRIN IVP PRN (06:13)
[2022-08-04 07:50] LABS: BASOPHILS # (AUTO) 0.1 K/uL (0.0-0.2); BASOPHILS % (AUTO) 0.8 % (0.0-2.0); EOSINOPHILS # (AUTO) 0.3 K/uL (0.0-0.4); EOSINOPHILS % (AUTO) 2.1 % (0.0-4.0); HEMATOCRIT 27.8 % (36-54); HEMOGLOBIN 8.7 g/dL (14.0-18.0); MEAN CORPUSCULAR HEMOGLOBIN 25 pg (27-31); MEAN CORPUSCULAR HGB CONC 31 % (32-36); MEAN CORPUSCULAR VOLUME 79 fL (79.0-98.0); MONOCYTES # (AUTO) 1.2 K/uL (0.0-1.0); MONOCYTES % (AUTO) 8.7 % (1.7-9.3); NEUTROPHILS # (AUTO) 11.4 K/uL (1.8-7.7); NEUTROPHILS % (AUTO) 81.4 % (40.0-70.0); PLATELET COUNT (AUTO) 245 K/uL (130-430); RED BLOOD CELL COUNT(AUTO) 3.54 MIL/uL (4.2-6.2); RED CELL DISTRIBUTION WIDTH 20.2 % (9.0-15.0)
[2022-08-04 08:24] LABS: ANION GAP 11 (5-15); CALCIUM 9.7 mg/dL (8.4-11.0); CHLORIDE 97 mmol/L (98-107); CREATININE 6.73 mg/dL (0.55-1.30); GLUCOSE 133 mg/dL (70-99); UREA NITROGEN, BLOOD 61 mg/dL (8-21); VANCOMYCIN,RANDOM 20.7 ug/mL
[2022-08-04] MEDS: ASPIRIN 81 MG TAB.CHEW PO SCH (09:00)
[2022-08-04] MEDS: DOCUSATE SODIUM 100 MG CAPSULE PO SCH ×2 (09:00→22:03)
[2022-08-04] MEDS: BISACODYL 10 MG/SUPPOSITORY RC SCH ×2 (09:00→22:02)
[2022-08-04] MEDS: MUPIROCIN 2% TOPICAL OINTMENT 22 GM TP SCH ×2 (09:18→22:03)
[2022-08-04] MEDS: MEGESTROL ACETATE 400 MG/10 ML UDC PO SCH (09:21)
[2022-08-04] MEDS: SEVELAMER CARBONATE 800 MG TABLET PO SCH (12:00)
[2022-08-04] MEDS ORDERED: VANCOMYCIN HCL 500 MG in NS 100 ML IV ONE (14:00)
[2022-08-04] MEDS: MIRTAZAPINE 15 MG TABLET PO SCH (22:03)
[2022-08-04] MEDS: ACETAMINOPHEN 500 MG TABLET PO PRN (22:05)
[2022-08-05 00:47] VITALS: BP_SYST 161
[2022-08-05] MEDS: traMADol HCL HCL 50 MG TABLET (ULTRAM) PO PRN (02:49)
[2022-08-05] MEDS: IPRATROPIUM/ALBUTEROL SULFATE 3 ML AMPUL.NEB (DUONEB) INH SCH ×6 (03:11→23:29)
[2022-08-05] MEDS: CEFTAROLINE FOSAMIL ACETATE IV SCH ×3 (04:48→22:39)
[2022-08-05] MEDS: NS IV SCH ×3 (04:48→22:39)
[2022-08-05 05:45] LABS: BASOPHILS # (AUTO) 0.1 K/uL (0.0-0.2); BASOPHILS % (AUTO) 0.4 % (0.0-2.0); EOSINOPHILS # (AUTO) 0.3 K/uL (0.0-0.4); EOSINOPHILS % (AUTO) 1.4 % (0.0-4.0); HEMATOCRIT 31.2 % (36-54); HEMOGLOBIN 9.7 g/dL (14.0-18.0); LYMPHOCYTES # (AUTO) 1.2 K/uL (1.0-5.5); LYMPHOCYTES % (AUTO) 6.7 % (20.5-51.5); MEAN CORPUSCULAR HEMOGLOBIN 24 pg (27-31); MEAN CORPUSCULAR HGB CONC 31 % (32-36); MEAN CORPUSCULAR VOLUME 78 fL (79.0-98.0); MONOCYTES # (AUTO) 2.2 K/uL (0.0-1.0); MONOCYTES % (AUTO) 12.4 % (1.7-9.3); NEUTROPHILS % (AUTO) 79.1 % (40.0-70.0); PLATELET COUNT (AUTO) 236 K/uL (130-430); RED BLOOD CELL COUNT(AUTO) 4.01 MIL/uL (4.2-6.2); RED CELL DISTRIBUTION WIDTH 20.1 % (9.0-15.0); WHITE BLOOD COUNT (AUTO) 17.8 K/uL (4.8-10.8)
[2022-08-05 06:29] LABS: ALANINE AMINOTRANSFERASE 17 U/L (12-78); ALBUMIN 1.9 g/dL (3.4-4.8); ANION GAP 12 (5-15); ASPARTATE AMINOTRANSFERASE 21 U/L (10-37); CALCIUM 10.1 mg/dL (8.4-11.0); CHLORIDE 97 mmol/L (98-107); CREATININE 4.81 mg/dL (0.55-1.30); GLUCOSE 92 mg/dL (70-99); PHOSPHORUS 4.8 mg/dL (2.7-4.5); TOTAL BILIRUBIN 0.6 mg/dL (0.0-1.0); UREA NITROGEN, BLOOD 38 mg/dL (8-21); VANCOMYCIN,RANDOM 28.2 ug/mL
[2022-08-05] MEDS: SEVELAMER CARBONATE 800 MG TABLET PO SCH ×4 (08:00→17:47)
[2022-08-05] MEDS: BISACODYL 10 MG/SUPPOSITORY RC SCH ×2 (09:34→21:21)
[2022-08-05] MEDS: ASPIRIN 81 MG TAB.CHEW PO SCH (09:34)
[2022-08-05] MEDS: DOCUSATE SODIUM 100 MG CAPSULE PO SCH ×2 (09:34→21:21)
[2022-08-05] MEDS: MEGESTROL ACETATE 400 MG/10 ML UDC PO SCH (09:34)
[2022-08-05] MEDS: MUPIROCIN 2% TOPICAL OINTMENT 22 GM TP SCH ×2 (09:35→21:22)
[2022-08-05 11:25] VITALS: BP_SYST 154
[2022-08-05 15:28] VITALS: BP_SYST 149
[2022-08-05 20:00] VITALS: BP_SYST 161
[2022-08-05] MEDS: MIRTAZAPINE 15 MG TABLET PO SCH (21:21)
[2022-08-06 01:24] VITALS: BP_SYST 166
[2022-08-06] MEDS: IPRATROPIUM/ALBUTEROL SULFATE 3 ML AMPUL.NEB (DUONEB) INH SCH ×5 (03:18→20:04)
[2022-08-06] MEDS: DEXTROSE 50% JECT 50 ML DISP.SYRIN IVP PRN (06:54)
[2022-08-06 08:00] VITALS: BP_SYST 129
[2022-08-06] MEDS: SEVELAMER CARBONATE 800 MG TABLET PO SCH ×3 (08:00→18:00)
[2022-08-06] MEDS ORDERED: ATROPINE SULFATE 0.4 MG/ML VIAL IVP ONE (09:30)
[2022-08-06] MEDS: DOCUSATE SODIUM 100 MG CAPSULE PO SCH ×2 (09:34→21:10)
[2022-08-06] MEDS: ASPIRIN 81 MG TAB.CHEW PO SCH (09:34)
[2022-08-06] MEDS: MUPIROCIN 2% TOPICAL OINTMENT 22 GM TP SCH ×2 (09:34→21:10)
[2022-08-06] MEDS: MEGESTROL ACETATE 400 MG/10 ML UDC PO SCH (09:34)
[2022-08-06] MEDS: BISACODYL 10 MG/SUPPOSITORY RC SCH ×2 (09:34→21:10)
[2022-08-06 10:02] VITALS: BP_SYST 129
[2022-08-06 11:24] VITALS: BP_SYST 143
[2022-08-06 15:26] VITALS: BP_SYST 139
[2022-08-06] MEDS: NS IV SCH ×2 (18:01→22:34)
[2022-08-06] MEDS: CEFTAROLINE FOSAMIL ACETATE IV SCH ×2 (18:01→22:34)
[2022-08-06 20:00] VITALS: BP_SYST 149
[2022-08-06] MEDS: MIRTAZAPINE 15 MG TABLET PO SCH (21:09)
[2022-08-06] MEDS ORDERED: CEFTAROLINE FOSAMIL ACETATE 400 MG VIAL IV ONE (21:50)
[2022-08-07] MEDS: IPRATROPIUM/ALBUTEROL SULFATE 3 ML AMPUL.NEB (DUONEB) INH SCH ×7 (00:20→22:10)
[2022-08-07] MEDS: D10W 1,000 ML IV SCH (06:45)
[2022-08-07 08:00] VITALS: BP_SYST 178
[2022-08-07] MEDS: SEVELAMER CARBONATE 800 MG TABLET PO SCH ×2 (08:00→12:00)
[2022-08-07] MEDS: ASPIRIN 81 MG TAB.CHEW PO SCH (09:00)
[2022-08-07] MEDS: MEGESTROL ACETATE 400 MG/10 ML UDC PO SCH (09:00)
[2022-08-07] MEDS: BISACODYL 10 MG/SUPPOSITORY RC SCH ×2 (09:00→21:55)
[2022-08-07] MEDS: DOCUSATE SODIUM 100 MG CAPSULE PO SCH ×2 (09:00→21:55)
[2022-08-07 11:22] VITALS: BP_SYST 161
[2022-08-07] MEDS: CEFTAROLINE FOSAMIL ACETATE IV SCH ×2 (12:47→22:51)
[2022-08-07] MEDS: NS IV SCH ×2 (12:47→22:51)
[2022-08-07 15:13] VITALS: BP_SYST 168
[2022-08-07] MEDS ORDERED: VANCOMYCIN HCL 500 MG in NS 100 ML IV ONE (17:00)
[2022-08-07 20:00] VITALS: BP_SYST 162
[2022-08-07] MEDS: MIRTAZAPINE 15 MG TABLET PO SCH (21:55)
[2022-08-07] MEDS: traMADol HCL HCL 50 MG TABLET (ULTRAM) PO PRN (21:55)
[2022-08-08 00:11] VITALS: BP_SYST 165
[2022-08-08] MEDS: IPRATROPIUM/ALBUTEROL SULFATE 3 ML AMPUL.NEB (DUONEB) INH SCH ×6 (02:15→23:17)
[2022-08-08 06:39] LABS: BASOPHILS # (AUTO) 0.1 K/uL (0.0-0.2); BASOPHILS % (AUTO) 0.5 % (0.0-2.0); EOSINOPHILS # (AUTO) 0.2 K/uL (0.0-0.4); EOSINOPHILS % (AUTO) 1.7 % (0.0-4.0); HEMATOCRIT 25.9 % (36-54); HEMOGLOBIN 8.2 g/dL (14.0-18.0); LYMPHOCYTES # (AUTO) 0.8 K/uL (1.0-5.5); LYMPHOCYTES % (AUTO) 7.6 % (20.5-51.5); MEAN CORPUSCULAR HEMOGLOBIN 24 pg (27-31); MEAN CORPUSCULAR HGB CONC 32 % (32-36); MEAN CORPUSCULAR VOLUME 77 fL (79.0-98.0); MONOCYTES # (AUTO) 1.2 K/uL (0.0-1.0); MONOCYTES % (AUTO) 11.8 % (1.7-9.3); NEUTROPHILS # (AUTO) 8.1 K/uL (1.8-7.7); NEUTROPHILS % (AUTO) 78.4 % (40.0-70.0); PLATELET COUNT (AUTO) 201 K/uL (130-430); RED BLOOD CELL COUNT(AUTO) 3.37 MIL/uL (4.2-6.2); RED CELL DISTRIBUTION WIDTH 20.6 % (9.0-15.0); WHITE BLOOD COUNT (AUTO) 10.3 K/uL (4.8-10.8)
[2022-08-08] MEDS: D10W 1,000 ML IV SCH (06:45)
[2022-08-08 07:17] LABS: ALANINE AMINOTRANSFERASE 6 U/L (12-78); ALBUMIN 1.7 g/dL (3.4-4.8); ANION GAP 10 (5-15); ASPARTATE AMINOTRANSFERASE 13 U/L (10-37); CHLORIDE 99 mmol/L (98-107); CREATININE 5.83 mg/dL (0.55-1.30); GLUCOSE 85 mg/dL (70-99); TOTAL BILIRUBIN 0.5 mg/dL (0.0-1.0); UREA NITROGEN, BLOOD 45 mg/dL (8-21); VANCOMYCIN,RANDOM 18.3 ug/mL
[2022-08-08 08:00] VITALS: BP_SYST 155
[2022-08-08] MEDS: ASPIRIN 81 MG TAB.CHEW PO SCH (09:17)
[2022-08-08] MEDS: MEGESTROL ACETATE 400 MG/10 ML UDC PO SCH (09:17)
[2022-08-08] MEDS: BISACODYL 10 MG/SUPPOSITORY RC SCH ×2 (09:18→20:31)
[2022-08-08] MEDS: DOCUSATE SODIUM 100 MG CAPSULE PO SCH ×2 (09:18→20:32)
[2022-08-08] MEDS: SEVELAMER CARBONATE 800 MG TABLET PO SCH ×5 (09:22→18:00)
[2022-08-08] MEDS: NS IV SCH ×2 (10:58→21:55)
[2022-08-08] MEDS: CEFTAROLINE FOSAMIL ACETATE IV SCH ×2 (10:58→21:55)
[2022-08-08 11:35] VITALS: BP_SYST 151
[2022-08-08 15:24] VITALS: BP_SYST 168
[2022-08-08] MEDS ORDERED: VANCOMYCIN HCL 500 MG in NS 100 ML IV ONE (17:00)
[2022-08-08 20:00] VITALS: BP_SYST 169
[2022-08-08] MEDS: MIRTAZAPINE 15 MG TABLET PO SCH (20:32)
[2022-08-09] VITALS: BP_SYST 156
[2022-08-09] MEDS: IPRATROPIUM/ALBUTEROL SULFATE 3 ML AMPUL.NEB (DUONEB) INH SCH ×3 (04:15→11:12)
[2022-08-09 05:57] LABS: BASOPHILS # (AUTO) 0.1 K/uL (0.0-0.2); BASOPHILS % (AUTO) 0.7 % (0.0-2.0); EOSINOPHILS # (AUTO) 0.2 K/uL (0.0-0.4); EOSINOPHILS % (AUTO) 1.5 % (0.0-4.0); HEMATOCRIT 26.5 % (36-54); HEMOGLOBIN 8.2 g/dL (14.0-18.0); LYMPHOCYTES # (AUTO) 0.6 K/uL (1.0-5.5); LYMPHOCYTES % (AUTO) 5.7 % (20.5-51.5); MEAN CORPUSCULAR HEMOGLOBIN 24 pg (27-31); MEAN CORPUSCULAR HGB CONC 31 % (32-36); MEAN CORPUSCULAR VOLUME 77 fL (79.0-98.0); MONOCYTES # (AUTO) 1.5 K/uL (0.0-1.0); NEUTROPHILS # (AUTO) 8.3 K/uL (1.8-7.7); NEUTROPHILS % (AUTO) 78.1 % (40.0-70.0); PLATELET COUNT (AUTO) 175 K/uL (130-430); RED BLOOD CELL COUNT(AUTO) 3.43 MIL/uL (4.2-6.2); WHITE BLOOD COUNT (AUTO) 10.6 K/uL (4.8-10.8)
[2022-08-09] MEDS ORDERED: NITROGLYCERIN 0.4 MG TAB.SUBL SL PRN (06:00)
[2022-08-09] MEDS ORDERED: MORPHINE 2 MG/ML INJ. SYRINGE IVP ONE (06:00)
[2022-08-09] MEDS: D10W 1,000 ML IV SCH (06:30)
[2022-08-09 06:46] LABS: ALANINE AMINOTRANSFERASE 6 U/L (12-78); ALBUMIN 1.6 g/dL (3.4-4.8); ANION GAP 8 (5-15); ASPARTATE AMINOTRANSFERASE 16 U/L (10-37); CALCIUM 9.4 mg/dL (8.4-11.0); CHLORIDE 101 mmol/L (98-107); CREATININE 3.89 mg/dL (0.55-1.30); GLUCOSE 104 mg/dL (70-99); TOTAL BILIRUBIN 0.6 mg/dL (0.0-1.0); UREA NITROGEN, BLOOD 25 mg/dL (8-21); VANCOMYCIN,RANDOM 21.3 ug/mL
[2022-08-09] MEDS: SEVELAMER CARBONATE 800 MG TABLET PO SCH (08:00)
[2022-08-09] MEDS ORDERED: CEFAZOLIN 1 GM IVPB PREMIX 50 ML IV ONE (08:00)
[2022-08-09] MEDS: BISACODYL 10 MG/SUPPOSITORY RC SCH (09:00)
[2022-08-09] MEDS: ASPIRIN 81 MG TAB.CHEW PO SCH (09:00)
[2022-08-09] MEDS: DOCUSATE SODIUM 100 MG CAPSULE PO SCH (09:00)
[2022-08-09] MEDS: MEGESTROL ACETATE 400 MG/10 ML UDC PO SCH (09:00)
[2022-08-09] MEDS: CEFTAROLINE FOSAMIL ACETATE IV SCH (09:24)
[2022-08-09] MEDS: NS IV SCH (09:24)
[2022-08-09 11:23] VITALS: BP_SYST 137
== END 2022-08-09 13:49 | DRG 871 ==
LOC: SED 23:17 → STU 07-31 02:20 → SIC 07-31 02:55 → STU 08-01 11:35
PROVIDERS: ADMIT Internal Medicine; ATTEND Internal Medicine
PROC: 5A1D70Z Performance of Urinary Filtration, Intermittent, Less than 6 Hours Per Day (ICD-10-PCS; principal; 2022-08-01)
PROC: 5A1D70Z Performance of Urinary Filtration, Intermittent, Less than 6 Hours Per Day (ICD-10-PCS; 2022-08-02)
PROC: 5A1D70Z Performance of Urinary Filtration, Intermittent, Less than 6 Hours Per Day (ICD-10-PCS; 2022-08-03)
PROC: 5A1D70Z Performance of Urinary Filtration, Intermittent, Less than 6 Hours Per Day (ICD-10-PCS; 2022-08-04)
PROC: 5A1D70Z Performance of Urinary Filtration, Intermittent, Less than 6 Hours Per Day (ICD-10-PCS; 2022-08-06)
PROC: 5A1D70Z Performance of Urinary Filtration, Intermittent, Less than 6 Hours Per Day (ICD-10-PCS; 2022-08-08)
PROC: 5A1D70Z Performance of Urinary Filtration, Intermittent, Less than 6 Hours Per Day (ICD-10-PCS; 2022-08-09)
PROC: 5A09357 Assistance with Respiratory Ventilation, Less than 24 Consecutive Hours, Continuous Positive Airway Pressure (ICD-10-PCS; 2022-08-09)
DX: A41.02 Sepsis due to Methicillin resistant Staphylococcus aureus (principal); E43 Unspecified severe protein-calorie malnutrition; G93.41 Metabolic encephalopathy; I21.A1 Myocardial infarction type 2; J96.21 Acute and chronic respiratory failure with hypoxia; N18.6 End stage renal disease; J18.9 Pneumonia, unspecified organism; I44.2 Atrioventricular block, complete; J44.0 Chronic obstructive pulmonary disease with (acute) lower respiratory infection; I13.2 Hypertensive heart and chronic kidney disease with heart failure and with stage 5 chronic kidney disease, or end stage renal disease; D63.8 Anemia in other chronic diseases classified elsewhere; I25.10 Atherosclerotic heart disease of native coronary artery without angina pectoris; E88.09 Other disorders of plasma-protein metabolism, not elsewhere classified; I46.9 Cardiac arrest, cause unspecified; F03.B0 Unspecified dementia, moderate, without behavioral disturbance, psychotic disturbance, mood disturbance, and anxiety; E11.42 Type 2 diabetes mellitus with diabetic polyneuropathy; J84.10 Pulmonary fibrosis, unspecified; R00.1 Bradycardia, unspecified; R13.10 Dysphagia, unspecified; Z20.822 Contact with and (suspected) exposure to COVID-19; F19.10 Other psychoactive substance abuse, uncomplicated; I50.9 Heart failure, unspecified; E11.22 Type 2 diabetes mellitus with diabetic chronic kidney disease; Z66 Do not resuscitate; Z87.891 Personal history of nicotine dependence; Z99.2 Dependence on renal dialysis; Z86.73 Personal history of transient ischemic attack (TIA), and cerebral infarction without residual deficits; Z79.82 Long term (current) use of aspirin; Z79.4 Long term (current) use of insulin; Z79.899 Other long term (current) drug therapy; Z74.01 Bed confinement status; Z68.23 Body mass index [BMI] 23.0-23.9, adult
CPT/HCPCS: 36415; 71045; 80048; 80053; 80202; 82803-TC; 82962; 83605; 83735; 83880; 84100; 84443; 84484; 85025; 85651-TC; 87040; 87081; 87101; 87186-TC; 90935; 90937; 92610-GN; 93005; 93306; 94640; 94760; 99291; G0378; J0461; J0692; J0712; J1815; J2270; J2543; J3370; J7050; J7060; J7613; P9046